=== PATIENT | male | born 1955 | race Caucasian/White ===

== ENCOUNTER → 2016-06-30 | Outpatient (CLI) | payer OTHER ==
[~2016-06-30] MED LIST: TYLOX 5/500 CAP1 CAP PO
--- NOTE | ~2016-06-30 | US77 ---
[facility] A Service of [facility] RADIOLOGY TEXT RESULTS PATIENT: KOBE VASQUEZ LOCATION: [facility] : 57 UNIT #: [id number] AGE: [address]: KATHY RODRIGUEZ APRN SEX: M ORDER DR: [id number] [id number] [facility]. [place], [place] [address] [id number] O MR#: [id number] Acc #: [id number] NAME: KOBE VASQUEZ : 1955 SEX: M STUDY DATE/TIME: 06/30/2016 12:06 UNIT: [facility] ROOM: STUDY DESCRIPTION: US Kidney Bilateral Complete Attending Physician: Kathy Rodriguez Aprn Ordering Physician: Kathy Rodriguez Aprn Primary Care Physician: Kathy Rodriguez Aprn MEDICAL IMAGING REPORT This report is preliminary unless electronic signature is present EXAM Renal ultrasound INDICATIONS Hematuria. This has intermittent for the past few months. TECHNIQUE Moroe-scale and color Doppler sonographic images were obtained through the kidneys and bladder. FINDINGS Right kidney is normal in appearance. Patient has a hyperechoic focus within the bladder which certainly could reflect a stone. There is a simple-appearing left renal cyst as well as a stone identified within the inferior pole of the left kidney. This was also seen on the prior CT from October 11, 2015. No hydronephrosis is identified on either side. No solid renal masses are seen. IMPRESSION 1. Punctate left renal stone without evidence of hydronephrosis. 2. Left renal cyst. 3. A hyperechoic focus within the bladder may certainly reflect a bladder stone. Dictated by... Sonia Martins M.D. THIS IS AN ELECTRONICALLY VERIFIED REPORT Sonia Martins M.D. at 07/01/2016 4:38 PM AFF/to TD: 06/30/2016 15:50 JOB #: [id number] [facility] A Service of [facility] RADIOLOGY TEXT RESULTS PATIENT: KOBE VASQUEZ LOCATION: [facility] #: [id number] : 57 UNIT #: [id number] AGE: [address]: KATHY RODRIGUEZ APRN SEX: M ORDER DR: MEDICAL IMAGING REPORT Page 1 of 1 COPY
== END | disposition home or self-care (01) ==
LOC: CGUS 11:49
DX: R31.9 Hematuria, unspecified (principal); N20.0 Calculus of kidney; N28.1 Cyst of kidney, acquired
CPT/HCPCS: 76770

== ENCOUNTER → 2016-09-18 | Outpatient (CLI) | payer OTHER ==
--- NOTE | ~2016-09-18 | US136 ---
[facility] A Service of [facility] RADIOLOGY TEXT RESULTS PATIENT: KOBE VASQUEZ LOCATION: [facility] : 57 UNIT #: [id number] AGE: [address]: KATHY RODRIGUEZ APRN SEX: M ORDER DR: [id number] [facility] [address] [place], [place] [address] [id number] O MR#: [id number] Acc #: [id number] NAME: KOBE VASQUEZ : 1955 SEX: M STUDY DATE/TIME: 09/18/2016 9:02 UNIT: [facility] ROOM: STUDY DESCRIPTION: U/L Ext Art Study Ltd Bilat Attending Physician: Kathy Rodriguez Aprn Referring Physician: Kathy Rodriguez Aprn Ordering Physician: Kathy Rodriguez Aprn Primary Care Physician: Kathy Rodriguez Aprn MEDICAL IMAGING REPORT This report is preliminary unless electronic signature is present EXAM Ankle-brachial indices INDICATIONS Intermittent claudication and lower extremity weakness. Diabetes, hyperlipidemia. Claudication bilaterally but there is rest pain on the right. FINDINGS The brachial pressure is 162. The right ankle pressure is 140 and the left ankle pressure is 137. The right KASHIF is 0.86 and the left KASHIF is 0.85. Toe-brachial indices are 0.72 on the right and 0.71 on the left. IMPRESSION Mildly decreased ankle-brachial indices bilaterally may indicate mild arterial occlusive disease in both lower extremities. Dictated by... Donovan Ugalde M.D. THIS IS AN ELECTRONICALLY VERIFIED REPORT Donovan Ugalde M.D. at 09/22/2016 10:06 AM SAVANNA/jamie TD: 09/21/2016 21:20 JOB #: [id number] MEDICAL IMAGING REPORT Page 1 of 1 COPY
== END | disposition home or self-care (01) ==
LOC: CNIV 08:41
DX: I73.9 Peripheral vascular disease, unspecified (principal); R29.898 Other symptoms and signs involving the musculoskeletal system
CPT/HCPCS: 93922

== ENCOUNTER → 2016-11-11 | Outpatient (CLI) | payer OTHER ==
--- NOTE | ~2016-11-11 | US37 ---
[facility] A Service of [facility] RADIOLOGY TEXT RESULTS PATIENT: KOBE VASQUEZ LOCATION: [facility] : 57 UNIT #: [id number] AGE: [address]: Aditi Shetty MD SEX: M ORDER DR: [id number] [facility] [address] [place], [place] [address] [id number] O MR#: [id number] Acc #: [id number] NAME: KOBE VASQUEZ : 1955 SEX: M STUDY DATE/TIME: UNIT: [facility] ROOM: STUDY DESCRIPTION: US Carotid W/Doppler Bilateral Attending Physician: Aditi Shetty M.D. Referring Physician: Aditi Shetty M.D. Ordering Physician: Aditi Shetty M.D. Primary Care Physician: Kathy Alicea Aprn MEDICAL IMAGING REPORT This report is preliminary unless electronic signature is present EXAM Carotid duplex scan date of examination 11/11/2016 HISTORY Cervical bruit. FINDINGS The right common carotid artery has no significant plaque. There is a small amount of dense plaque in the right carotid bulb which extends up into the proximal internal and external carotid arteries. Peak systolic velocity in the distal right internal carotid artery is 83 cm/sec with an end diastolic velocity of 33 cm/sec. The ICA/CCA ratio on the right is 1.13. Peak systolic velocity in the right external carotid artery is 221 cm/sec. The right vertebral artery is patent with antegrade flow. The left common carotid artery has a small amount of heterogeneous plaque. There is heterogeneous dense plaque in the left carotid bulb which extends up into the proximal internal and external carotid arteries. Peak systolic velocity in the distal left internal carotid artery is 96 cm/sec with an end diastolic velocity of 30 cm/sec. The ICA/CCA ratio on the left is 1.11. Peak systolic velocity in the left external carotid artery is 137 cm/sec. The left vertebral artery is patent with antegrade flow. IMPRESSION Small amount of plaque, but no significant stenosis (less than 50%) in the internal carotid arteries bilaterally. Significant stenosis of the external carotid arteries on both sides. Patent vertebral arteries bilaterally with antegrade flow. Dictated by... [facility] A Service of [facility] RADIOLOGY TEXT RESULTS PATIENT: KOBE VASQUEZ LOCATION: [facility] : 57 UNIT #: [id number] AGE: [address]: Aditi Shetty MD SEX: M ORDER DR: Javan Das M.D. THIS IS AN ELECTRONICALLY VERIFIED REPORT Javan Das M.D. at 11/12/2016 7:30 AM VIKRAM/maday TD: 11/11/2016 19:47 JOB #: [id number] MEDICAL IMAGING REPORT Page 1 of 1 COPY
== END | disposition home or self-care (01) ==
LOC: CNIV 08:58
DX: R09.89 Other specified symptoms and signs involving the circulatory and respiratory systems (principal); I65.23 Occlusion and stenosis of bilateral carotid arteries; E11.9 Type 2 diabetes mellitus without complications; E78.00 Pure hypercholesterolemia, unspecified; G62.9 Polyneuropathy, unspecified; I73.9 Peripheral vascular disease, unspecified
CPT/HCPCS: 93880

== ENCOUNTER → 2016-12-04 | Outpatient (CLI) | payer OTHER ==
--- NOTE | ~2016-12-04 | CR181 ---
[facility] A Service of [facility] RADIOLOGY TEXT RESULTS PATIENT: KOBE VASQUEZ LOCATION: [facility] : 57 UNIT #: [id number] AGE: [address]: KATHY RODRIGUEZ APRN SEX: M ORDER DR: [id number] [facility] [address] [place], [place] [address] [id number] O MR#: [id number] Acc #: [id number] NAME: KOBE VASQUEZ : 1955 SEX: M STUDY DATE/TIME: 12/04/2016 10:43 UNIT: [facility] ROOM: STUDY DESCRIPTION: CR Lumbar Spine 2 or 3 Views Attending Physician: Kathy Rodriguez Aprn Referring Physician: Kathy Rodriguez Aprn Ordering Physician: Kathy Rodriguez Aprn Primary Care Physician: Kathy Rodriguez Aprn MEDICAL IMAGING REPORT This report is preliminary unless electronic signature is present EXAM Lumbar spine series 12/04/2016 1043 hours HISTORY 61-year-old man with lower extremity numbness and weakness over 8-9 years with recent worsening. History of diabetes. COMPARISON CT abdomen and pelvis, sagittal and coronal reconstructions, 10/11/2015. FINDINGS AP and lateral views of the lumbar spine and a cone lateral view of the lumbosacral junction were performed. There is endplate spurring at most levels. There is no vertebral fracture or subluxation. No significant disc height loss. There is lower lumbar facet arthropathy particularly at L5-S1. There is atherosclerotic calcification of the abdominal aorta, with increase in the AP dimension of the aorta distally to diameter 4.[address] abdomen 10/11/2015 demonstrated aneurysm measuring 3.[address] abdomen to assess for increasing abdominal aortic aneurysm. IMPRESSION 1. Multilevel endplate spurring without vertebral body or disc height loss. Moderate facet arthropathy L4-5, severe facet arthropathy L5-S1. 2. There is atherosclerotic calcification of the abdominal aorta with AP dimension of 4.7 cm suggested on lateral view. This has increased from an aneurysm of 3.8 cm on 10/11/2015 CT abdomen. Suggest followup CT to assess for enlarging abdominal aortic aneurysm. STAT * RESULT [facility] A Service of [facility] & [facility] RADIOLOGY TEXT RESULTS PATIENT: KOBE VASQUEZ LOCATION: [facility] #: [id number] : 57 UNIT #: [id number] AGE: [address]: KATHY RODRIGUEZ APRN SEX: M ORDER DR: Dictated by... Twyla Jose M.D. THIS IS AN ELECTRONICALLY VERIFIED REPORT Twyla Jose M.D. at 12/04/2016 2:30 PM TROY/jamie TD: 12/04/2016 12:51 JOB #: [id number] MEDICAL IMAGING REPORT Page 1 of 1 COPY
== END | disposition home or self-care (01) ==
LOC: CRAD 10:34
DX: R29.898 Other symptoms and signs involving the musculoskeletal system (principal); M46.06 Spinal enthesopathy, lumbar region; M46.96 Unspecified inflammatory spondylopathy, lumbar region; M46.97 Unspecified inflammatory spondylopathy, lumbosacral region; I70.0 Atherosclerosis of aorta; I71.4 Abdominal aortic aneurysm, without rupture
CPT/HCPCS: 72100